=== PATIENT | female | born 1990 | race African-American/Black ===

== ENCOUNTER 2021-01-04 14:17 | Emergency (ER) | payer MEDICAID, OTHER ==
[~2021-01-04] VITALS: Ht 165.1 cm; Wt 116.1 kg
[2021-01-04] MEDS ORDERED: SUMAtriptan SUCCINATE 6 MG/0.5 ML VL SC ONE (15:30)
[2021-01-04] MEDS ORDERED: ONDANSETRON ODT 4 MG TAB PO ONE (15:30)
[2021-01-04 16:13] VITALS: BP 153/103
== END 2021-01-04 16:28 | disposition home or self-care (01) ==
LOC: ER 14:17
DX: G43.909 Migraine, unspecified, not intractable, without status migrainosus (principal); I10 Essential (primary) hypertension
CPT/HCPCS: 96372; 99283; J3030; Q0162

== ENCOUNTER 2022-09-19 06:04 | Emergency (ER) | payer MEDICAID ==
[~2022-09-19] VITALS: Ht 165.1 cm; Wt 104.2 kg
[2022-09-19] MEDS ORDERED: IPRATROPIUM BROM 0.5 MG/2.5ML INH SOL NEB ONE ×2 (06:30→07:00)
[2022-09-19] MEDS ORDERED: ALBUTEROL SULF 2.5 MG/0.5ML(0.5%) NEB SOLN NEB ONE ×2 (06:30→07:00)
[2022-09-19] MEDS ORDERED: methylPREDNISolone SOD SUCC 125 MG/2 ML VL IM ONE (07:00)
[2022-09-19] MEDS ORDERED: cloNIDine HCL 0.1 MG TAB PO ONE (07:00)
[2022-09-19 07:44] VITALS: BP 151/95
[2022-09-19] MEDS ORDERED: ALB5IS NEB (07:52)
[2022-09-19] MEDS ORDERED: PRED20TA2 PO (07:52)
== END 2022-09-19 08:07 | disposition home or self-care (01) ==
LOC: ER 06:04
DX: J45.901 Unspecified asthma with (acute) exacerbation (principal); I10 Essential (primary) hypertension
CPT/HCPCS: 71046; 94640; 96372; 99283; J2930; J7644